=== PATIENT | male | born 1965 | race Two or more races ===

== ENCOUNTER 2018-07-18 17:09 | Inpatient (IN) | payer MEDICAID ==
[~2018-07-18] VITALS: Ht 195.6 cm; Wt 110.3 kg
[2018-07-18] MEDS ORDERED: HYDROMORPHONE HCL/PF 2MG/ML CPJ IV ONE (17:15)
[2018-07-18] MEDS ORDERED: ONDANSETRON HCL 4MG/2ML INJ IV ONE (17:15)
[2018-07-18 18:00] LABS: BASOPHILS % 0.7 % (0.0-2.0); EOSINOPHILS % 0.6 % (0.0-5.0); HEMATOCRIT. 41.1 % (42.0-52.0); HEMOGLOBIN. 14.1 g/dL (14.0-18.0); LYMPHOCYTES % 20.9 % (20.0-50.0); MEAN CORPUSCULAR HEMOGLOBIN 31.4 pg (28.0-32.0); MEAN CORPUSCULAR VOLUME 91.5 fL (80.0-94.0); MEAN PLATELET VOLUME 7.3 fl (7.4-10.4); MONOCYTES % 8.5 % (2.0-8.0); NEUTROPHILS % 69.3 % (40.0-76.0); PLATELET 539 x1000/uL (130-400); RED CELL DISTRIBUTION WIDTH 13.7 % (11.6-14.6)
[2018-07-18] MEDS ORDERED: FUROSEMIDE 40MG/4ML VIAL IVP ONE (18:00)
[2018-07-18 18:04] LABS: CHLORIDE 100 mEq/L (98-107)
[2018-07-18 18:05] LABS: PARTIAL THROMBOPLASTIN TIME 23.5 sec (23.4-31.0); PROTHROMBIN TIME 9.9 sec (9.1-11.1)
[2018-07-18] MEDS ORDERED: MORPHINE SULFATE 4 MG/ML CPJ (NOT FOR IM USE) IV STA (18:40)
[2018-07-18] MEDS ORDERED: CEFTRIAXONE 1 G PREMIX 50 ML IV ONE (18:45)
[2018-07-18] MEDS ORDERED: SODIUM CHLORIDE 0.9% 1000ML BAG (SEPSIS BOLUS) IV ONE (18:45)
[2018-07-18] MEDS ORDERED: TRAMADOL 50MG TABLET PO PRN (20:15)
[2018-07-18] MEDS ORDERED: NA PHOS,M-B/NA PHOS,DI-BA ENEMA 118ML PR PRN (20:15)
[2018-07-18] MEDS ORDERED: MAGNESIUM/ALUMINUM HYDROXIDE/SIMETHICONE 30ML UDC PO PRN (20:15)
[2018-07-18] MEDS ORDERED: ZOLPIDEM TARTRATE 5MG TABLET PO PRN (20:15)
[2018-07-18] MEDS ORDERED: GUAIFENESIN 200MG/10ML SUGAR FREE UDC PO PRN (20:15)
[2018-07-18] MEDS ORDERED: LORAZEPAM 0.5MG TABLET PO PRN (20:15)
[2018-07-18] MEDS ORDERED: CLONIDINE 0.1MG TABLET PO PRN (20:15)
[2018-07-18] MEDS ORDERED: ONDANSETRON HCL 4MG/2ML INJ IV PRN (20:15)
[2018-07-18] MEDS ORDERED: IPRATROPIUM/ALBUTEROL 0.5-3(2.5)MG/3ML NEB INH PRN (20:15)
[2018-07-18] MEDS ORDERED: NITROGLYCERIN 0.4MG TABLET SL SL PRN (20:15)
[2018-07-18 23:29] LABS: CREATINE KINASE 113 IU/L (39-308)
[2018-07-18 23:30] LABS: CREATINE KINASE MB FRACTION < 1.0 ng/mL (0.5-3.6)
[2018-07-18] MEDS ORDERED: IOHEXOL-350 100 ML BOTTLE ONE (23:34)
[2018-07-18 23:43] VITALS: BP 121/73
[2018-07-19] VITALS (15 sets, daily range): BP systolic 105–140; BP diastolic 59–92
[2018-07-19] MEDS ORDERED: AZITHROMYCIN 500 MG in DEXT 5% WATER 250 ML IV SCH (01:00)
[2018-07-19] MEDS: KETOROLAC 15MG/ML VIAL IV PRN ×2 (01:05→07:35)
[2018-07-19 07:32] LABS: CREATINE KINASE 99 IU/L (39-308)
[2018-07-19 07:33] LABS: CREATINE KINASE MB FRACTION < 1.0 ng/mL (0.5-3.6)
[2018-07-19] MEDS ORDERED: PNEUMOCOCCAL 23-VAL P-SAC VAC 0.5 ML IM ONE (08:00)
[2018-07-19] MEDS ORDERED: CEFTRIAXONE 1 G PREMIX 50 ML IV SCH (09:00)
[2018-07-19] MEDS: ENOXAPARIN 40MG/0.4ML SYR SUBCUT SCH (09:38)
[2018-07-19] MEDS: ASPIRIN 325MG EC TABLET PO SCH (09:39)
[2018-07-19] MEDS: ZINC SULFATE 220 MG ( 50 ) CAPSULE PO SCH (09:39)
[2018-07-19] MEDS: GUAIFENESIN/DM 600MG/30MG ER TAB 12HR PO SCH ×2 (09:39→20:54)
[2018-07-19] MEDS: ASCORBIC ACID 500 MG TABLET PO SCH ×2 (09:40→20:54)
[2018-07-19] MEDS: FAMOTIDINE 20MG TABLET PO SCH ×2 (09:40→20:54)
[2018-07-19] MEDS ORDERED: INFLUENZA VIRUS VACCINE(AFLURIA) 0.5ML SYR IM ONE (10:00)
[2018-07-19 12:07] LABS: BASOPHILS % 0.6 % (0.0-2.0); EOSINOPHILS % 1.1 % (0.0-5.0); HEMOGLOBIN. 11.9 g/dL (14.0-18.0); LYMPHOCYTES % 10.1 % (20.0-50.0); MEAN CORPUSCULAR HEMOGLOBIN 31.1 pg (28.0-32.0); MEAN CORPUSCULAR VOLUME 91.5 fL (80.0-94.0); MEAN PLATELET VOLUME 6.9 fl (7.4-10.4); MONOCYTES % 8.4 % (2.0-8.0); NEUTROPHILS % 79.8 % (40.0-76.0); PLATELET 367 x1000/uL (130-400); RED BLOOD CELL COUNT 3.83 mill/uL (4.7-6.1); RED CELL DISTRIBUTION WIDTH 13.5 % (11.6-14.6)
[2018-07-19] MEDS: KETOROLAC 30MG/ML VIAL IV PRN ×3 (12:20→22:43)
[2018-07-19 12:21] LABS: CHLORIDE 102 mEq/L (98-107)
[2018-07-19 17:03] LABS: *COCAINE SCREEN URINE NEGATIVE (NEGATIVE); METHADONE URINE SCREEN NEGATIVE (NEGATIVE)
[2018-07-19 17:04] LABS: *BARBITURATES SCREEN URINE NEGATIVE (NEGATIVE); *BENZODIAZEPINES SCREEN URINE NEGATIVE (NEGATIVE); CANNABINOID URINE SCREEN NEGATIVE (NEGATIVE); OPIATES URINE SCREEN PRESUMTIVE POSITIVE (NEGATIVE); PHENCYCLIDINE URINE SCREEN NEGATIVE (NEGATIVE)
[2018-07-19 17:05] LABS: *AMPHETAMINES SCREEN URINE NEGATIVE (NEGATIVE)
[2018-07-19] MEDS: CEFTRIAXONE 1,000 MG in DEXTROSE 5% WATER 50 ML IV SCH (17:16)
[2018-07-20] VITALS (12 sets, daily range): BP systolic 111–152; BP diastolic 69–87
[2018-07-20] MEDS: AZITHROMYCIN 500 MG in DEXT 5% WATER 250 ML IV SCH (03:49)
[2018-07-20] MEDS: KETOROLAC 30MG/ML VIAL IV PRN ×3 (03:50→18:44)
[2018-07-20] MEDS: ENOXAPARIN 40MG/0.4ML SYR SUBCUT SCH (09:20)
[2018-07-20] MEDS: ASPIRIN 325MG EC TABLET PO SCH (09:20)
[2018-07-20] MEDS: GUAIFENESIN/DM 600MG/30MG ER TAB 12HR PO SCH ×2 (09:20→20:04)
[2018-07-20] MEDS: ASCORBIC ACID 500 MG TABLET PO SCH ×2 (09:20→20:04)
[2018-07-20] MEDS: DOCUSATE SODIUM 100MG CAPSULE PO PRN (09:21)
[2018-07-20] MEDS: FAMOTIDINE 20MG TABLET PO SCH ×2 (09:27→20:03)
[2018-07-20] MEDS: ZINC SULFATE 220 MG ( 50 ) CAPSULE PO SCH (09:27)
[2018-07-20] MEDS: CEFTRIAXONE 1,000 MG in DEXTROSE 5% WATER 50 ML IV SCH (17:53)
[2018-07-20] MEDS: ACETAMINOPHEN 325MG TABLET PO PRN (19:37)
[2018-07-20] MEDS: ENOXAPARIN 30MG/0.3ML SYR SUBCUT SCH (20:05)
[2018-07-21] VITALS (11 sets, daily range): BP systolic 117–142; BP diastolic 40–88
[2018-07-21] MEDS: KETOROLAC 30MG/ML VIAL IV PRN ×4 (03:16→22:00)
[2018-07-21] MEDS: AZITHROMYCIN 500 MG in DEXT 5% WATER 250 ML IV SCH (03:55)
[2018-07-21 05:58] LABS: HEMATOCRIT. 34.8 % (42.0-52.0); HEMOGLOBIN. 11.8 g/dL (14.0-18.0); MEAN CORPUSCULAR HEMOGLOBIN 30.5 pg (28.0-32.0); MEAN CORPUSCULAR VOLUME 90.2 fL (80.0-94.0); MEAN PLATELET VOLUME 7.6 fl (7.4-10.4); PLATELET 379 x1000/uL (130-400); RED BLOOD CELL COUNT 3.86 mill/uL (4.7-6.1); RED CELL DISTRIBUTION WIDTH 13.5 % (11.6-14.6)
[2018-07-21 06:46] LABS: CHLORIDE 104 mEq/L (98-107)
[2018-07-21] MEDS: ASPIRIN 325MG EC TABLET PO SCH (09:00)
[2018-07-21] MEDS: GUAIFENESIN/DM 600MG/30MG ER TAB 12HR PO SCH ×2 (09:03→21:59)
[2018-07-21] MEDS: ZINC SULFATE 220 MG ( 50 ) CAPSULE PO SCH (09:03)
[2018-07-21] MEDS: FAMOTIDINE 20MG TABLET PO SCH ×2 (09:03→21:00)
[2018-07-21] MEDS: ENOXAPARIN 30MG/0.3ML SYR SUBCUT SCH ×2 (09:03→22:03)
[2018-07-21] MEDS: ASCORBIC ACID 500 MG TABLET PO SCH ×2 (09:03→21:59)
[2018-07-21] MEDS: LEVOFLOXACIN 750MG PREMIX 150 ML IV SCH (12:15)
[2018-07-21 13:12] LABS: PLATELET ESTIMATE NORMAL
[2018-07-21] MEDS ORDERED: LORAZEPAM 2MG/ML CPJ IV PRN (13:45)
[2018-07-21] MEDS ORDERED: IPRATROPIUM/ALBUTEROL 0.5-3(2.5)MG/3ML NEB HHN PRN (13:45)
[2018-07-21] MEDS ORDERED: LIDOCAINE HCL 1% 20ML VIAL (Pyxis) INJ ONE (14:08)
[2018-07-21] MEDS ORDERED: SODIUM BICARBONATE 4% (2.4MEQ) 5ML VIAL IV ONE (14:08)
[2018-07-21] MEDS: ACETAMINOPHEN 325MG TABLET PO PRN (15:57)
[2018-07-21] MEDS: FOLIC ACID 1MG TABLET PO SCH (15:58)
[2018-07-21] MEDS: MULTIVITAMINS,THER W-MINERALS TABLET PO SCH (15:58)
[2018-07-21] MEDS: THIAMINE HCL 100MG TABLET PO SCH (16:04)
[2018-07-21] MEDS: METRONIDAZOLE 500 MG PREMIX 100 ML IV SCH ×2 (17:07→22:01)
[2018-07-21] MEDS: CEFTRIAXONE 1,000 MG in DEXTROSE 5% WATER 50 ML IV SCH (18:24)
[2018-07-22] VITALS (11 sets, daily range): BP systolic 115–145; BP diastolic 65–97
[2018-07-22] MEDS: IPRATROPIUM/ALBUTEROL 0.5-3(2.5)MG/3ML NEB HHN SCH ×5 (00:05→16:20)
[2018-07-22] MEDS: ACETYLCYSTEINE 100MG/ML 10% VIAL 4ML INH SCH ×3 (00:05→16:20)
[2018-07-22] MEDS: METRONIDAZOLE 500 MG PREMIX 100 ML IV SCH ×2 (06:11→16:34)
[2018-07-22] MEDS: KETOROLAC 30MG/ML VIAL IV PRN (06:11)
[2018-07-22] MEDS: ASPIRIN 325MG EC TABLET PO SCH (08:27)
[2018-07-22] MEDS: GUAIFENESIN/DM 600MG/30MG ER TAB 12HR PO SCH ×2 (08:28→21:00)
[2018-07-22] MEDS: FOLIC ACID 1MG TABLET PO SCH (08:29)
[2018-07-22] MEDS: ZINC SULFATE 220 MG ( 50 ) CAPSULE PO SCH (08:29)
[2018-07-22] MEDS: THIAMINE HCL 100MG TABLET PO SCH (08:30)
[2018-07-22] MEDS: ENOXAPARIN 30MG/0.3ML SYR SUBCUT SCH ×2 (08:30→21:00)
[2018-07-22] MEDS: FAMOTIDINE 20MG TABLET PO SCH ×2 (08:30→21:00)
[2018-07-22] MEDS: ASCORBIC ACID 500 MG TABLET PO SCH ×2 (08:30→21:00)
[2018-07-22] MEDS: MULTIVITAMINS,THER W-MINERALS TABLET PO SCH (08:30)
[2018-07-22] MEDS ORDERED: DIGOXIN 500MCG/2ML AMP IV NR (09:15)
[2018-07-22] MEDS ORDERED: DILTIAZEM HCL 125 MG in DEXT 5% WATER 100 ML IV SCH (10:00)
[2018-07-22] MEDS: DILTIAZEM HCL 125 MG in DEXTROSE 5% WATER 125 ML IV SCH (10:53)
[2018-07-22] MEDS ORDERED: SODIUM CHLORIDE 0.9% 500 ML IV ONE (11:00)
[2018-07-22] MEDS ORDERED: POTASSIUM CHLORIDE INJ 40 MEQ in DEXT 5% WATER 250 ML IV ONE (11:00)
[2018-07-22 11:05] LABS: T4 FREE 1.47 ng/dL (0.76-1.46)
[2018-07-22] MEDS ORDERED: MAGNESIUM 1 G PREMIX 100 ML IV NR (12:00)
[2018-07-22] MEDS: ACETAMINOPHEN 325MG TABLET PO PRN ×2 (12:33→17:12)
[2018-07-22] MEDS: COLCHICINE 0.6MG TABLET PO SCH ×2 (12:36→21:00)
[2018-07-22] MEDS: LEVOFLOXACIN 750MG PREMIX 150 ML IV SCH (12:40)
[2018-07-22 13:04] LABS: PHOSPHORUS 3.6 mg/dL (2.5-4.9)
[2018-07-22] MEDS ORDERED: TALC 3 GM VIAL IX ONE (13:08)
[2018-07-22] MEDS ORDERED: BACITRACIN 50,000 UNITS/VIAL ONE (13:28)
[2018-07-22] MEDS ORDERED: BUPIVACAINE/EPINEPH/PF 0.25%/0.0005 10ML ONE (13:28)
[2018-07-22] MEDS: KCL 10MEQ/50ML PREMIX 50 ML IV SCH ×2 (14:24→15:20)
[2018-07-22 14:51] LABS: CREATINE KINASE 131 IU/L (39-308)
[2018-07-22 14:52] LABS: CREATINE KINASE MB FRACTION < 1.0 ng/mL (0.5-3.6)
[2018-07-22] MEDS ORDERED: TETRACAINE/BENZOCAINE/BUTAMBEN 20 GM SPRAY MM ONE (15:49)
[2018-07-22] MEDS ORDERED: ACETAMINOPHEN 650MG SUPP PR PRN (17:15)
[2018-07-22] MEDS ORDERED: SUCCINYLCHOLINE CHLORIDE 200MG/10ML IV ONE (18:22)
[2018-07-22] MEDS ORDERED: LIDOCAINE HCL/PF 1% 10 MG/ML 5ML VIAL ONE (18:22)
[2018-07-22] MEDS ORDERED: ONDANSETRON HCL 4MG/2ML INJ ONE (18:22)
[2018-07-22] MEDS ORDERED: ROCURONIUM BROMIDE 10MG/ML VIAL 5ML IV ONE ×2 (18:22→18:56)
[2018-07-22] MEDS ORDERED: NEOSTIGMINE METHYLSULFATE 1MG/ML 10 ML VIAL ONE (18:22)
[2018-07-22] MEDS ORDERED: EPHEDRINE SULFATE 50MG/ML VIAL ONE (18:22)
[2018-07-22] MEDS ORDERED: MIDAZOLAM HCL 2 MG/2 ML VIAL ONE (18:22)
[2018-07-22] MEDS ORDERED: GLYCOPYRROLATE 0.2 MG/ML 2ML VIAL ONE (18:22)
[2018-07-22] MEDS ORDERED: METOCLOPRAMIDE HCL 10MG/2ML VIAL ONE (18:22)
[2018-07-22] MEDS ORDERED: PROPOFOL 200MG/20ML VIAL IV ONE ×2 (18:22→19:53)
[2018-07-22] MEDS ORDERED: PHENYLEPHRINE HCL 10 MG/ML 1ML (IV VIAL) IV ONE (18:22)
[2018-07-22] MEDS ORDERED: FENTANYL CITRATE/PF 50MCG/ML 2ML VIAL ONE ×3 (18:22→20:18)
[2018-07-22] MEDS ORDERED: SODIUM CHLORIDE 0.9% 10ML VIAL ONE (18:22)
[2018-07-22] MEDS ORDERED: CEFAZOLIN SODIUM 1000MG/VIAL ONE (18:22)
[2018-07-22] MEDS ORDERED: ALBUMIN HUMAN 12.5G/250ML (5%) IV ONE (18:35)
[2018-07-22] MEDS ORDERED: MIDAZOLAM HCL 5 MG/5 ML VIAL IV NR (20:15)
[2018-07-22] MEDS ORDERED: COLCHICINE 0.6MG TABLET PO SCH (21:00)
[2018-07-22 21:03] LABS: BG BASE EXCESS -4.4 mmol/L (-2.0-2.0); BG CARBOXYHEMOGLOBIN 0.7 % (0.5-1.5); BG DEOXYHEMOGLOBIN 1.4 % (0.0-5.0); BG FRACTION INSPIRED OXYGEN 100; BG HCO3 ACT 21.9 mmol/L (22.0-26.0); BG METHEMOGLOBIN 0.4 % (0.0-1.5); BG OXYGEN SATURATION 98.6 % (92.0-98.5); BG OXYHEMOGLOBIN 97.5 % (94.0-97.0); BG PCO2 44.6 mmHg (35.0-45.0); BG PH 7.309 (7.350-7.450); BG PO2 148.2 mmHg (75.0-100.0); BG SAMPLE SITE A-LINE; BG TIDAL VOLUME(mL) 550 mL; BG TOTAL HEMOGLOBIN 15.3 g/dL (12.0-18.0); BG VENT MODE VENT - A/C; BG VENT RATE 12 set
[2018-07-22] MEDS ORDERED: SODIUM CHLORIDE 0.9% 1,000 ML IV ONE (21:27)
[2018-07-22] MEDS ORDERED: HYDROMORPHONE HCL/PF 2MG/ML CPJ IV PRN (21:30)
[2018-07-22] MEDS ORDERED: ONDANSETRON HCL 4MG/2ML INJ IV PRN (21:30)
[2018-07-22] MEDS ORDERED: MORPHINE SULFATE 4 MG/ML CPJ (NOT FOR IM USE) IV PRN (21:30)
[2018-07-22] MEDS ORDERED: MEPERIDINE HCL/PF 25MG/ML CPJ IV PRN ×2 (21:30)
[2018-07-22] MEDS: HYDROMORPHONE HCL/PF 2MG/ML CPJ IV PRN ×2 (21:36→22:06)
[2018-07-22 22:06] LABS: HEMATOCRIT. 32.1 % (42.0-52.0); HEMOGLOBIN. 10.7 g/dL (14.0-18.0); MEAN CORPUSCULAR HEMOGLOBIN 30.4 pg (28.0-32.0); MEAN CORPUSCULAR VOLUME 90.9 fL (80.0-94.0); MEAN PLATELET VOLUME 7.1 fl (7.4-10.4); PLATELET 371 x1000/uL (130-400); RED BLOOD CELL COUNT 3.53 mill/uL (4.7-6.1); RED CELL DISTRIBUTION WIDTH 13.8 % (11.6-14.6)
[2018-07-22 22:14] LABS: CHLORIDE 108 mEq/L (98-107)
[2018-07-22 22:22] LABS: CREATINE KINASE 476 IU/L (39-308)
[2018-07-22 22:24] LABS: CREATINE KINASE MB FRACTION 3.4 ng/mL (0.5-3.6)
[2018-07-22 22:27] LABS: PLATELET ESTIMATE NORMAL
[2018-07-22] MEDS ORDERED: PROPOFOL 10MG/ML 100ML 100 ML IV PRN (22:30)
[2018-07-23] VITALS (70 sets, daily range): BP systolic 0–254; BP diastolic 0–240
[2018-07-23] MEDS: IPRATROPIUM/ALBUTEROL 0.5-3(2.5)MG/3ML NEB HHN SCH ×6 (00:58→20:14)
[2018-07-23] MEDS: ACETYLCYSTEINE 100MG/ML 10% VIAL 4ML INH SCH ×3 (00:59→16:00)
[2018-07-23] MEDS: METRONIDAZOLE 500 MG PREMIX 100 ML IV SCH ×4 (02:21→21:25)
[2018-07-23] MEDS: CEFTRIAXONE 1,000 MG in DEXTROSE 5% WATER 50 ML IV SCH ×2 (02:21→17:55)
[2018-07-23] MEDS: KETOROLAC 30MG/ML VIAL IV PRN (06:30)
[2018-07-23 07:53] LABS: CREATINE KINASE MB FRACTION 2.5 ng/mL (0.5-3.6)
[2018-07-23 08:03] LABS: CREATINE KINASE 587 IU/L (39-308)
[2018-07-23 08:50] LABS: BG BASE EXCESS 2.1 mmol/L (-2.0-2.0); BG CARBOXYHEMOGLOBIN 0.3 % (0.5-1.5); BG DEOXYHEMOGLOBIN 0.8 % (0.0-5.0); BG FRACTION INSPIRED OXYGEN 90; BG HCO3 ACT 25.4 mmol/L (22.0-26.0); BG METHEMOGLOBIN 1.1 % (0.0-1.5); BG OXYGEN SATURATION 99.2 % (92.0-98.5); BG OXYHEMOGLOBIN 97.8 % (94.0-97.0); BG PCO2 34.9 mmHg (35.0-45.0); BG PO2 397.7 mmHg (75.0-100.0); BG SAMPLE SITE A-LINE; BG TIDAL VOLUME(mL) 550 mL; BG TOTAL HEMOGLOBIN 11.3 g/dL (12.0-18.0); BG VENT MODE VENT - A/C; BG VENT RATE 12 set
[2018-07-23] MEDS: GUAIFENESIN/DM 600MG/30MG ER TAB 12HR PO SCH ×2 (09:00→21:26)
[2018-07-23] MEDS: THIAMINE HCL 100MG TABLET PO SCH (09:00)
[2018-07-23] MEDS: ASCORBIC ACID 500 MG TABLET PO SCH ×2 (09:00→21:26)
[2018-07-23] MEDS: FAMOTIDINE 20MG TABLET PO SCH ×2 (09:00→21:30)
[2018-07-23] MEDS: FOLIC ACID 1MG TABLET PO SCH (09:00)
[2018-07-23] MEDS: ZINC SULFATE 220 MG ( 50 ) CAPSULE PO SCH (09:00)
[2018-07-23] MEDS: ASPIRIN 81MG TABLET PO SCH (09:00)
[2018-07-23] MEDS: ENOXAPARIN 30MG/0.3ML SYR SUBCUT SCH ×2 (09:00→21:27)
[2018-07-23] MEDS: MULTIVITAMINS,THER W-MINERALS TABLET PO SCH (09:00)
[2018-07-23] MEDS: DILTIAZEM HCL 125 MG in DEXTROSE 5% WATER 125 ML IV SCH (10:30)
[2018-07-23 12:44] LABS: BG BASE EXCESS -2.6 mmol/L (-2.0-2.0); BG CARBOXYHEMOGLOBIN 0.3 % (0.5-1.5); BG DEOXYHEMOGLOBIN 1.8 % (0.0-5.0); BG FRACTION INSPIRED OXYGEN 40; BG HCO3 ACT 20.3 mmol/L (22.0-26.0); BG METHEMOGLOBIN 0.2 % (0.0-1.5); BG OXYGEN SATURATION 98.2 % (92.0-98.5); BG OXYHEMOGLOBIN 97.7 % (94.0-97.0); BG PCO2 28.6 mmHg (35.0-45.0); BG PH 7.468 (7.350-7.450); BG PO2 118.7 mmHg (75.0-100.0); BG PRESSURE SUPPORT 8; BG SAMPLE SITE A-LINE; BG TOTAL HEMOGLOBIN 10.5 g/dL (12.0-18.0); BG VENT MODE VENT - CPAP
[2018-07-23] MEDS: DOCUSATE SODIUM 250MG CAPSULE PO SCH (12:45)
[2018-07-23] MEDS ORDERED: BISACODYL 5MG TABLET PO PRN (12:45)
[2018-07-23] MEDS: LEVOFLOXACIN 750MG PREMIX 150 ML IV SCH (12:50)
[2018-07-23] MEDS: COLCHICINE 0.6MG TABLET PO SCH ×2 (15:19→21:26)
[2018-07-23] MEDS: MORPHINE SULFATE 4 MG/ML CPJ (NOT FOR IM USE) IV PRN ×2 (17:34→19:55)
[2018-07-23] MEDS: ACETAMINOPHEN 325MG TABLET PO PRN (19:54)
[2018-07-24] VITALS (54 sets, daily range): BP systolic 120–162; BP diastolic 57–83
[2018-07-24] MEDS: ACETYLCYSTEINE 100MG/ML 10% VIAL 4ML INH SCH ×2 (00:06→08:16)
[2018-07-24] MEDS: IPRATROPIUM/ALBUTEROL 0.5-3(2.5)MG/3ML NEB HHN SCH ×6 (00:06→19:53)
[2018-07-24] MEDS: KETOROLAC 30MG/ML VIAL IV PRN (00:26)
[2018-07-24] MEDS: METRONIDAZOLE 500 MG PREMIX 100 ML IV SCH ×3 (05:55→21:20)
[2018-07-24] MEDS: MORPHINE SULFATE 4 MG/ML CPJ (NOT FOR IM USE) IV PRN ×5 (06:04→21:18)
[2018-07-24] MEDS: DOCUSATE SODIUM 250MG CAPSULE PO SCH (09:00)
[2018-07-24] MEDS: ZINC SULFATE 220 MG ( 50 ) CAPSULE PO SCH (09:16)
[2018-07-24] MEDS: DOCUSATE SODIUM 100MG CAPSULE PO PRN ×2 (09:16→21:14)
[2018-07-24] MEDS: COLCHICINE 0.6MG TABLET PO SCH ×4 (09:16→21:12)
[2018-07-24] MEDS: MULTIVITAMINS,THER W-MINERALS TABLET PO SCH (09:16)
[2018-07-24] MEDS: ASPIRIN 81MG TABLET PO SCH (09:16)
[2018-07-24] MEDS: GUAIFENESIN/DM 600MG/30MG ER TAB 12HR PO SCH ×2 (09:17→21:12)
[2018-07-24] MEDS: ASCORBIC ACID 500 MG TABLET PO SCH ×2 (09:17→21:13)
[2018-07-24] MEDS: FOLIC ACID 1MG TABLET PO SCH (09:17)
[2018-07-24] MEDS: THIAMINE HCL 100MG TABLET PO SCH (09:17)
[2018-07-24] MEDS: ACETAMINOPHEN 325MG TABLET PO PRN ×2 (09:17→21:16)
[2018-07-24] MEDS: FAMOTIDINE 20MG TABLET PO SCH ×2 (09:17→21:13)
[2018-07-24] MEDS: DILTIAZEM HCL 125 MG in DEXTROSE 5% WATER 125 ML IV SCH (10:30)
[2018-07-24 12:09] LABS: HEMOGLOBIN. 10.4 g/dL (14.0-18.0); MEAN CORPUSCULAR HEMOGLOBIN 30.6 pg (28.0-32.0); MEAN CORPUSCULAR VOLUME 91.3 fL (80.0-94.0); MEAN PLATELET VOLUME 7.4 fl (7.4-10.4); PLATELET 395 x1000/uL (130-400)
[2018-07-24 12:14] LABS: CHLORIDE 103 mEq/L (98-107)
[2018-07-24] MEDS: LEVOFLOXACIN 750MG PREMIX 150 ML IV SCH (12:49)
[2018-07-24] MEDS: ENOXAPARIN 30MG/0.3ML SYR SUBCUT SCH ×2 (12:50→21:19)
[2018-07-24 13:34] LABS: PLATELET ESTIMATE NORMAL
[2018-07-24] MEDS: CEFTRIAXONE 1,000 MG in DEXTROSE 5% WATER 50 ML IV SCH (18:41)
[2018-07-25] VITALS (23 sets, daily range): BP systolic 128–160; BP diastolic 68–88
[2018-07-25] MEDS: IPRATROPIUM/ALBUTEROL 0.5-3(2.5)MG/3ML NEB HHN SCH ×6 (00:24→21:14)
[2018-07-25] MEDS ORDERED: COLCHICINE 0.6MG TABLET PO SCH (00:30)
[2018-07-25] MEDS: ACETAMINOPHEN 325MG TABLET PO PRN ×2 (03:12→12:22)
[2018-07-25] MEDS: COLCHICINE 0.6MG TABLET PO SCH ×11 (03:13→23:18)
[2018-07-25] MEDS: METRONIDAZOLE 500 MG PREMIX 100 ML IV SCH ×3 (05:22→21:39)
[2018-07-25] MEDS: ASCORBIC ACID 500 MG TABLET PO SCH ×2 (09:52→21:00)
[2018-07-25] MEDS: ASPIRIN 81MG TABLET PO SCH (09:52)
[2018-07-25] MEDS: MULTIVITAMINS,THER W-MINERALS TABLET PO SCH (09:52)
[2018-07-25] MEDS: GUAIFENESIN/DM 600MG/30MG ER TAB 12HR PO SCH ×2 (09:53→20:59)
[2018-07-25] MEDS: THIAMINE HCL 100MG TABLET PO SCH (09:53)
[2018-07-25] MEDS: DOCUSATE SODIUM 250MG CAPSULE PO SCH (09:53)
[2018-07-25] MEDS: FOLIC ACID 1MG TABLET PO SCH (09:53)
[2018-07-25] MEDS: ZINC SULFATE 220 MG ( 50 ) CAPSULE PO SCH (09:53)
[2018-07-25] MEDS: FAMOTIDINE 20MG TABLET PO SCH ×2 (09:53→21:00)
[2018-07-25] MEDS: DILTIAZEM HCL 125 MG in DEXTROSE 5% WATER 125 ML IV SCH (10:30)
[2018-07-25] MEDS: ENOXAPARIN 30MG/0.3ML SYR SUBCUT SCH ×2 (12:06→20:59)
[2018-07-25] MEDS: LEVOFLOXACIN 750MG PREMIX 150 ML IV SCH ×2 (12:06→18:57)
[2018-07-25 13:10] LABS: HEMOGLOBIN. 11.1 g/dL (14.0-18.0); MEAN CORPUSCULAR HEMOGLOBIN 30.2 pg (28.0-32.0); MEAN CORPUSCULAR VOLUME 92.3 fL (80.0-94.0); MEAN PLATELET VOLUME 8.1 fl (7.4-10.4); PLATELET 456 x1000/uL (130-400); RED BLOOD CELL COUNT 3.69 mill/uL (4.7-6.1)
[2018-07-25 13:14] LABS: CHLORIDE 101 mEq/L (98-107)
[2018-07-25 14:04] LABS: PLATELET ESTIMATE INCREASED
[2018-07-25] MEDS ORDERED: SODIUM POLYSTYRENE SULFONATE 15 G/60 ML BOT PO NR (17:30)
[2018-07-26] VITALS: BP 136/88
[2018-07-26] MEDS: COLCHICINE 0.6MG TABLET PO SCH ×3 (01:00→20:03)
[2018-07-26 04:00] VITALS: BP 133/79
[2018-07-26] MEDS: METRONIDAZOLE 500 MG PREMIX 100 ML IV SCH ×3 (06:22→22:37)
[2018-07-26 07:14] LABS: CHLORIDE 103 mEq/L (98-107)
[2018-07-26 08:00] VITALS: BP 130/72
[2018-07-26 08:04] LABS: HEMATOCRIT. 34.3 % (42.0-52.0); HEMOGLOBIN. 11.4 g/dL (14.0-18.0); MEAN CORPUSCULAR HEMOGLOBIN 30.5 pg (28.0-32.0); MEAN CORPUSCULAR VOLUME 91.3 fL (80.0-94.0); PLATELET 494 x1000/uL (130-400); RED BLOOD CELL COUNT 3.75 mill/uL (4.7-6.1); RED CELL DISTRIBUTION WIDTH 14.1 % (11.6-14.6)
[2018-07-26] MEDS: DOCUSATE SODIUM 250MG CAPSULE PO SCH (09:00)
[2018-07-26] MEDS: IPRATROPIUM/ALBUTEROL 0.5-3(2.5)MG/3ML NEB HHN SCH ×3 (10:30→21:13)
[2018-07-26] MEDS: ASPIRIN 81MG TABLET PO SCH (10:38)
[2018-07-26] MEDS: GUAIFENESIN/DM 600MG/30MG ER TAB 12HR PO SCH ×2 (10:38→20:03)
[2018-07-26] MEDS: MULTIVITAMINS,THER W-MINERALS TABLET PO SCH (10:38)
[2018-07-26] MEDS: THIAMINE HCL 100MG TABLET PO SCH (10:39)
[2018-07-26] MEDS: FOLIC ACID 1MG TABLET PO SCH (10:39)
[2018-07-26] MEDS: FAMOTIDINE 20MG TABLET PO SCH ×2 (10:39→20:03)
[2018-07-26] MEDS: ZINC SULFATE 220 MG ( 50 ) CAPSULE PO SCH (10:39)
[2018-07-26] MEDS: ASCORBIC ACID 500 MG TABLET PO SCH ×2 (10:39→20:03)
[2018-07-26] MEDS: ENOXAPARIN 30MG/0.3ML SYR SUBCUT SCH ×2 (10:40→21:46)
[2018-07-26] MEDS: DILTIAZEM HCL 180MG CAPSULE CD 24HR PO SCH (11:42)
[2018-07-26 12:00] VITALS: BP 131/73
[2018-07-26 16:00] VITALS: BP 121/77
[2018-07-26] MEDS: ACETAMINOPHEN 325MG TABLET PO PRN (17:08)
[2018-07-26] MEDS: CEFTRIAXONE 1,000 MG in DEXTROSE 5% WATER 50 ML IV SCH (17:08)
[2018-07-26 20:00] VITALS: BP 117/71
[2018-07-27] VITALS: BP 121/74
[2018-07-27] MEDS: IPRATROPIUM/ALBUTEROL 0.5-3(2.5)MG/3ML NEB HHN SCH ×7 (00:44→23:44)
[2018-07-27 03:41] LABS: PLATELET ESTIMATE INCREAS
[2018-07-27 04:00] VITALS: BP 121/71
[2018-07-27] MEDS: KETOROLAC 15MG/ML VIAL IV PRN ×3 (05:00→23:42)
[2018-07-27] MEDS: METRONIDAZOLE 500 MG PREMIX 100 ML IV SCH ×3 (06:12→22:40)
[2018-07-27 08:00] VITALS: BP 111/69
[2018-07-27] MEDS: ASCORBIC ACID 500 MG TABLET PO SCH ×2 (09:34→21:47)
[2018-07-27] MEDS: ASPIRIN 81MG TABLET PO SCH (09:35)
[2018-07-27] MEDS: THIAMINE HCL 100MG TABLET PO SCH (09:35)
[2018-07-27] MEDS: DILTIAZEM HCL 180MG CAPSULE CD 24HR PO SCH (09:35)
[2018-07-27] MEDS: COLCHICINE 0.6MG TABLET PO SCH (09:35)
[2018-07-27] MEDS: GUAIFENESIN/DM 600MG/30MG ER TAB 12HR PO SCH ×2 (09:35→21:47)
[2018-07-27] MEDS: FOLIC ACID 1MG TABLET PO SCH (09:35)
[2018-07-27] MEDS: DOCUSATE SODIUM 250MG CAPSULE PO SCH (09:35)
[2018-07-27] MEDS: MULTIVITAMINS,THER W-MINERALS TABLET PO SCH (09:35)
[2018-07-27] MEDS: FAMOTIDINE 20MG TABLET PO SCH ×2 (09:35→21:48)
[2018-07-27] MEDS: ZINC SULFATE 220 MG ( 50 ) CAPSULE PO SCH (09:35)
[2018-07-27] MEDS: ENOXAPARIN 30MG/0.3ML SYR SUBCUT SCH ×2 (09:36→21:47)
[2018-07-27 12:00] VITALS: BP 109/68
[2018-07-27] MEDS: LEVOFLOXACIN 750MG PREMIX 150 ML IV SCH (13:03)
[2018-07-27] MEDS ORDERED: COLCHICINE 0.6MG TABLET PO PRN (15:00)
[2018-07-27] MEDS: METHYLPREDNISOLONE SOD SUCC 125 MG/2 ML VIAL IV SCH ×2 (15:10→21:47)
[2018-07-27 16:00] VITALS: BP 112/69
[2018-07-27 20:00] VITALS: BP 105/73
[2018-07-28] VITALS: BP 108/62
[2018-07-28 04:00] VITALS: BP 111/71
[2018-07-28] MEDS: IPRATROPIUM/ALBUTEROL 0.5-3(2.5)MG/3ML NEB HHN SCH (04:16)
[2018-07-28] MEDS: METHYLPREDNISOLONE SOD SUCC 125 MG/2 ML VIAL IV SCH ×2 (06:45→13:23)
[2018-07-28] MEDS: METRONIDAZOLE 500 MG PREMIX 100 ML IV SCH ×2 (06:45→14:00)
[2018-07-28] MEDS: KETOROLAC 15MG/ML VIAL IV PRN ×2 (06:55→19:20)
[2018-07-28 08:00] VITALS: BP 121/69
[2018-07-28] MEDS: DILTIAZEM HCL 180MG CAPSULE CD 24HR PO SCH (08:37)
[2018-07-28] MEDS: ZINC SULFATE 220 MG ( 50 ) CAPSULE PO SCH (08:37)
[2018-07-28] MEDS: COLCHICINE 0.6MG TABLET PO SCH ×3 (08:37→19:14)
[2018-07-28] MEDS: GUAIFENESIN/DM 600MG/30MG ER TAB 12HR PO SCH (08:37)
[2018-07-28] MEDS: DOCUSATE SODIUM 250MG CAPSULE PO SCH (08:37)
[2018-07-28] MEDS: ASCORBIC ACID 500 MG TABLET PO SCH (08:37)
[2018-07-28] MEDS: FAMOTIDINE 20MG TABLET PO SCH (08:37)
[2018-07-28] MEDS: ASPIRIN 81MG TABLET PO SCH (08:37)
[2018-07-28] MEDS: THIAMINE HCL 100MG TABLET PO SCH (08:37)
[2018-07-28] MEDS: FOLIC ACID 1MG TABLET PO SCH (08:37)
[2018-07-28] MEDS: MULTIVITAMINS,THER W-MINERALS TABLET PO SCH (08:37)
[2018-07-28] MEDS: ENOXAPARIN 30MG/0.3ML SYR SUBCUT SCH (08:38)
[2018-07-28 12:00] VITALS: BP 119/78
[2018-07-28] MEDS: LEVOFLOXACIN 750MG PREMIX 150 ML IV SCH (13:24)
[2018-07-28 16:00] VITALS: BP 127/77
[2018-07-28 20:09] VITALS: BP 127/77
== END 2018-07-28 21:15 | disposition home or self-care (01) | DRG 121 ==
LOC: ER 17:09 → 5EST 19:45 → EDBEDREQTM 19:50 → EDBEDREQ 19:50 → EDBEDREQSVC 19:50 → ENRESERV 22:23 → CANRESERV 22:25 → ENRESERV 22:25 → CVICU 07-22 23:10 → 5WST 07-25 15:04
PROVIDERS: ADMIT Internal Medicine; ATTEND Internal Medicine
PROC: 5A09357 Assistance with Respiratory Ventilation, Less than 24 Consecutive Hours, Continuous Positive Airway Pressure (ICD-10-PCS; 2018-07-18)
PROC: 0W9930Z Drainage of Right Pleural Cavity with Drainage Device, Percutaneous Approach (ICD-10-PCS; 2018-07-21)
PROC: 0BNC4ZZ Release Right Upper Lung Lobe, Percutaneous Endoscopic Approach (ICD-10-PCS; 2018-07-22)
PROC: 0W9J3ZZ Drainage of Pelvic Cavity, Percutaneous Approach (ICD-10-PCS; 2018-07-22)
PROC: 0BNF4ZZ Release Right Lower Lung Lobe, Percutaneous Endoscopic Approach (ICD-10-PCS; 2018-07-22)
PROC: 0BND4ZZ Release Right Middle Lung Lobe, Percutaneous Endoscopic Approach (ICD-10-PCS; 2018-07-22)
PROC: 5A1935Z Respiratory Ventilation, Less than 24 Consecutive Hours (ICD-10-PCS; principal; 2018-07-23)
PROC: 0BH17EZ Insertion of Endotracheal Airway into Trachea, Via Natural or Artificial Opening (ICD-10-PCS; 2018-07-23)
PROC: 3E0T3BZ Introduction of Anesthetic Agent into Peripheral Nerves and Plexi, Percutaneous Approach (ICD-10-PCS; 2018-07-24)
DX: J18.1 Lobar pneumonia, unspecified organism (principal); J96.00 Acute respiratory failure, unspecified whether with hypoxia or hypercapnia; J86.9 Pyothorax without fistula; J90 Pleural effusion, not elsewhere classified; I11.9 Hypertensive heart disease without heart failure; I48.0 Paroxysmal atrial fibrillation; F10.20 Alcohol dependence, uncomplicated; M10.9 Gout, unspecified; R19.7 Diarrhea, unspecified; K30 Functional dyspepsia; K59.00 Constipation, unspecified; F41.9 Anxiety disorder, unspecified; G47.00 Insomnia, unspecified; S30.810A Abrasion of lower back and pelvis, initial encounter; X58.XXXA Exposure to other specified factors, initial encounter; R07.89 Other chest pain; E66.9 Obesity, unspecified; Z68.28 Body mass index [BMI] 28.0-28.9, adult; Y93.89 Activity, other specified; Y92.89 Other specified places as the place of occurrence of the external cause; Y99.8 Other external cause status; Z23 Encounter for immunization
CPT/HCPCS: 32555; 36415; 36600; 71045; 71275; 74018; 76705; 80048; 80061; 80305; 82375; 82550; 82553; 82805; 83036; 83605; 83735; 83880; 84100; 84134; 84145; 84439; 84443; 84478; 84484; 84550; 85379; 85651; 86431; 87070; 87075; 87430; 87804; 88108; 88305; 88312; 92610; 93005; 93306; 93970; 94002; 94003; 94640; 94660; 96365; 96366; 96375; 97116; 97163; 97530; 99291; J0171; J0330; J0456; J0690; J0696; J1160; J1170; J1650; J1885; J1956; J2060; J2250; J2270; J2370; J2405; J2704; J2710; J2765; J2930; J3010; J3475; J3480; J3490; J7030; J7040; J7050; J7060; J7608; J7620; P9041; Q9967